=== PATIENT | male | born 1960 | race Caucasian/White ===

== ENCOUNTER 2019-07-20 12:06 | Inpatient (IN) | payer MEDICAID, OTHER ==
[~2019-07-20] VITALS: Ht 172.7 cm; Wt 90.9 kg
[2019-07-20 12:50] LABS: Basophils # (auto) 0.1 uL; Basophils % (auto) 1.7 % (0.0-2.0); Eosinophils # (auto) 0.2 uL; Eosinophils % (auto) 3.4 % (0.0-7.0); Hematocrit 37.6 % (41.0-53.0); Hemoglobin 12.6 g/dL (13.5-17.5); Lymphocytes # (auto) 2.5 uL; Lymphocytes % (auto) 35.1 % (10.0-50.0); Mean Corpuscular Hemoglobin 30.8 pg (28.0-32.0); Mean Corpuscular Hgb Conc. 33.5 g/dL (32.0-36.0); Mean Corpuscular Volume 91.9 fL (80.0-100.0); Monocytes # (auto) 0.4 uL; Monocytes % (auto) 5.1 % (0.0-12.0); Neutrophils # (auto) 3.9 uL; Neutrophils % (auto) 54.7 % (37.0-80.0); Platelet Count (auto) 204 10^3/uL (140-450); Red Blood Cells 4.09 10^6/uL (4.5-5.90); Red Cell Distribution Width 15.6 % (11.8-14.3); White Blood Cell 7.1 10^3/uL (4.4-10.8)
[2019-07-20 13:04] LABS: Albumin 2.8 g/dL (3.4-5.0); Anion Gap 6 (5-15); Blood Urea Nitrogen 21 mg/dL (7-18); Calcium 8.8 mg/dL (8.5-10.1); Carbon Dioxide 24 mmol/L (21-32); Chloride 114 mmol/L (98-107); Glucose 100 mg/dL (74-106); INR 0.94 (0.9-1.15); Partial Thromboplastin Time 25.9 sec (23.64-32.05); Sodium 144 mmol/L (136-145)
[2019-07-20 13:10] LABS: Alanine Aminotransferase 45 U/L (16-61); Alkaline Phosphatase 72 U/L (45-117); Aspartate Aminotransferase 30 U/L (15-37); BUN/Creatinine Ratio 22.1; Bilirubin, Total 0.4 mg/dL (0.2-1.0); GFR African American 105 mL/min; GFR Non-African American 87 mL/min; Total Protein 7.5 g/dL (6.4-8.2)
[2019-07-20] MEDS ORDERED: hydrALAZINE HCL 20 MG/ML VL IV PRN (17:15)
[2019-07-20] MEDS ORDERED: DEXTROSE (50%) 50ML SYRG IV PRN (17:15)
[2019-07-20] MEDS ORDERED: ACETAMINOPHEN 500 MG TAB PO PRN (17:15)
[2019-07-20] MEDS ORDERED: ONDANSETRON HCL 4 MG/2 ML VIAL IV PRN (17:15)
[2019-07-20] MEDS ORDERED: MORPHINE SULF INJ 2 MG/ML SYRINGE 1ML IV PRN (17:15)
[2019-07-20 17:24] LABS: CRP High Sensitivity 0.08 mg/dL (< 0.3)
--- NOTE | 2019-07-20 18:41 | NUR ---
PATIENT ADMITTED FROM ER VIA WHEELCHAIR: ORIENTED TO THE TELE/MS UNIT, ROOM 250A. A/OX 4 RESPIRATIONS EVEN AND UNLABORED. IV IN THE RIGHT HAND 20G LOCKED, FLUSHED WELL. PATIENT VS OBTAINED. ALL WNL. BED IN LOWEST LOCKED POSITION. CALL LIGHT WITHIN REACH, PATIENT VERBALIZED UNDERSTANDING. FALL PRECAUTIONS IN PLACE.
--- NOTE | 2019-07-20 18:44 | NUR ---
PERSONAL CANE AT BEDSIDE.
[2019-07-20 18:46] VITALS: BP 122/79
--- NOTE | 2019-07-20 19:00 | NUR ---
UPDATE ON ADMISSION: PATIENT HAS NICOTINE PATCH ON RIGHT UPPER ARM, SMOKES 1 PACK OVER 2 MONTHS. STATES ALL HIS PAPERWORK FROM [facility] IS IN THE PARKING LOT IN HIS TRUCK, ALONG WITH HIS RECENTLY DISCHARGED MEDS. PATIENT STATED HE HAS BEEN LIVING IN HIS TRUCK THE LAST THREE DAYS. INSTITUTIONAL NUTRITION CONSULTANT CONSULT PLACED. PATIENT REQUESTING FLU AND PNEUMONIA VACCINE. WILL ENDORSE CARE TO PATRICK VILLAGOMEZ.
[2019-07-20] MEDS ORDERED: INFLUENZA QUAD 2019-2020 0.5ml SYRG IM ONE (19:15)
[2019-07-20] MEDS ORDERED: PNEUMOCOCCAL VACC POLYS 25 MCG/0.5 ML VIAL IM ONE (19:15)
[2019-07-20] MEDS ORDERED: METF-370 PO (19:25)
[2019-07-20] MEDS ORDERED: GABA300C10 PO (19:25)
[2019-07-20] MEDS ORDERED: ATO40T PO (19:25)
[2019-07-20] MEDS ORDERED: MET50T PO (19:25)
--- NOTE | 2019-07-20 19:29 | NUR ---
CARE ENDORSED TO ALEKSANDER VILLAGOMEZ.
[2019-07-20] MEDS: InsuLIN REG 1unit/0.01ml Soln (100units/ml) SC SCH (21:37)
[2019-07-20] MEDS: ATORVASTATIN 20 MG TAB PO SCH (21:37)
[2019-07-20] MEDS: ACCU-CHEK COMFORT CURVE STRIP VI SCH (21:37)
[2019-07-20 22:00] VITALS: BP 118/62
[2019-07-20] MEDS: METOPROLOL TARTRATE 25 MG TAB PO SCH (22:00)
[2019-07-21 05:00] VITALS: BP 148/75
[2019-07-21 05:52] LABS: Basophils # (auto) 0.1 uL; Basophils % (auto) 1.8 % (0.0-2.0); Eosinophils # (auto) 0.2 uL; Eosinophils % (auto) 4.3 % (0.0-7.0); Hemoglobin 12.3 g/dL (13.5-17.5); Lymphocytes # (auto) 1.8 uL; Lymphocytes % (auto) 37.7 % (10.0-50.0); Mean Corpuscular Hemoglobin 30.7 pg (28.0-32.0); Mean Corpuscular Hgb Conc. 33.3 g/dL (32.0-36.0); Mean Corpuscular Volume 92.2 fL (80.0-100.0); Monocytes # (auto) 0.3 uL; Monocytes % (auto) 6.5 % (0.0-12.0); Neutrophils # (auto) 2.4 uL; Neutrophils % (auto) 49.7 % (37.0-80.0); Nucleated Red Blood Cells % 0.1 %; Platelet Count (auto) 180 10^3/uL (140-450); Red Blood Cells 4.01 10^6/uL (4.5-5.90); Red Cell Distribution Width 15.8 % (11.8-14.3); White Blood Cell 4.8 10^3/uL (4.4-10.8)
[2019-07-21 06:11] LABS: INR 0.96 (0.9-1.15); Partial Thromboplastin Time 26.1 sec (23.64-32.05)
[2019-07-21 06:19] LABS: BUN/Creatinine Ratio 23.1; Calcium 8.4 mg/dL (8.5-10.1)
[2019-07-21] MEDS: ACCU-CHEK COMFORT CURVE STRIP VI SCH ×4 (06:33→22:00)
[2019-07-21] MEDS: InsuLIN REG 1unit/0.01ml Soln (100units/ml) SC SCH ×4 (06:33→22:00)
[2019-07-21] MEDS: MORPHINE SULF INJ 2 MG/ML SYRINGE 1ML IV PRN ×2 (06:52→22:08)
--- NOTE | 2019-07-21 07:30 | NUR ---
Opening Shift Note Assumed care of patient, awake and alert. No S/S of distress/SOB or pain. Instructed on POC and to call for assist PRN, fall precautions in place per safety protocol. Will continue to monitor for changes Q1hr and PRN.
--- NOTE | 2019-07-21 07:30 | NUR ---
CARE ENDORSED TO AM SHIFT RN
[2019-07-21] MEDS ORDERED: ADENOSINE 75 MG in GIVE UN-DILUTED 0 ML IV STA (08:11)
[2019-07-21 08:32] VITALS: BP 144/76
[2019-07-21 08:58] VITALS: BP 117/72
--- NOTE | 2019-07-21 10:12 | NUR ---
. at bedside Dr. Orozco at bedside. aware of patient status. MD. Orozco spoke to Dr. Jimenez. Awaiting Echo at this time. No new orders at this time.
[2019-07-21] MEDS: FAMOTIDINE 20 MG TAB PO SCH (10:21)
[2019-07-21] MEDS: METOPROLOL TARTRATE 25 MG TAB PO SCH ×2 (10:21→22:00)
[2019-07-21] MEDS: ASPirin-EC 81 mg tab PO SCH (10:22)
[2019-07-21] MEDS: LISINOPRIL 10 MG TAB PO SCH (10:22)
[2019-07-21] MEDS: NITROGLYCERIN 0.4 MG SL TAB SL PRN ×2 (10:23→10:28)
--- NOTE | 2019-07-21 10:23 | NUR ---
Complaint of chest pain Patient complained of chest pain 9/10. Initiated Nitro therapy as ordered. First dose given at 1023 BP 142/76 HR 71. Patient reports pain level is down to 4/10. Second dose given 1028, BP 146/79 HR 79. Patient pain now at 2/10 and refusing third dose, states he is at a " comfortable pain level". No distress or SOB noted, resting comfortably in bed. Will continue to monitor PRN.
--- NOTE | 2019-07-21 10:39 | NUR ---
Pt. Denies pain Patient states chest pain has subsided. and pain level is 0/10, BP 109/78 HR 85. No signs of distress, sob, or discomfort noted. Will continue to monitor.
--- NOTE | 2019-07-21 12:05 | NUR ---
Cardio at bedside STAFF DEVELOPMENT EDUCATOR Appiah at bedside. Aware of patient status. Per STAFF DEVELOPMENT EDUCATOR, patient shows positive for Cardiolite and will be scheduled for an LHC. Per STAFF DEVELOPMENT EDUCATOR Appiah, continue nitro and analgesic therapy PRN. Will resume orders and continue to monitor.
[2019-07-21 13:00] VITALS: BP 132/74
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
[2019-07-21 16:52] VITALS: BP 141/70
--- NOTE | 2019-07-21 19:05 | NUR ---
Endorsed Care Endorsed care to welder 2nd shift DAHLIA Machuca. No distress noted or SOB at this time.
[2019-07-21] MEDS: ATORVASTATIN 20 MG TAB PO SCH (21:59)
[2019-07-21 23:26] VITALS: BP 130/56
[2019-07-22] MEDS: MORPHINE SULF INJ 2 MG/ML SYRINGE 1ML IV PRN ×3 (03:20→21:12)
[2019-07-22] MEDS: HYDROcodone-ACET 5/325MG TAB PO PRN (04:49)
[2019-07-22 06:18] LABS: Basophils # (auto) 0.1 uL; Basophils % (auto) 1.1 % (0.0-2.0); Eosinophils # (auto) 0.2 uL; Eosinophils % (auto) 2.9 % (0.0-7.0); Hematocrit 37.6 % (41.0-53.0); Hemoglobin 12.4 g/dL (13.5-17.5); Lymphocytes # (auto) 1.8 uL; Lymphocytes % (auto) 27.9 % (10.0-50.0); Mean Corpuscular Hemoglobin 30.4 pg (28.0-32.0); Mean Corpuscular Volume 92.1 fL (80.0-100.0); Monocytes # (auto) 0.3 uL; Monocytes % (auto) 5.2 % (0.0-12.0); Neutrophils # (auto) 4.1 uL; Neutrophils % (auto) 62.9 % (37.0-80.0); Platelet Count (auto) 171 10^3/uL (140-450); Red Blood Cells 4.08 10^6/uL (4.5-5.90); Red Cell Distribution Width 15.5 % (11.8-14.3); White Blood Cell 6.5 10^3/uL (4.4-10.8)
[2019-07-22 06:33] LABS: INR 0.95 (0.9-1.15)
[2019-07-22] MEDS: InsuLIN REG 1unit/0.01ml Soln (100units/ml) SC SCH ×4 (06:35→22:20)
[2019-07-22] MEDS: ACCU-CHEK COMFORT CURVE STRIP VI SCH ×4 (06:35→22:20)
[2019-07-22 06:37] LABS: Albumin 2.7 g/dL (3.4-5.0); Calcium 8.1 mg/dL (8.5-10.1); Magnesium 1.8 mg/dL (1.6-2.6); Potassium 4.1 mmol/L (3.5-5.1)
[2019-07-22 06:42] LABS: Bilirubin, Total 0.3 mg/dL (0.2-1.0); Total Protein 6.9 g/dL (6.4-8.2)
--- NOTE | 2019-07-22 07:07 | NUR ---
CARE ENDORSED TO AM SHIFT RN
--- NOTE | 2019-07-22 07:30 | NUR ---
Shift Opening note Assumed care of patient, awake and alert. No S/S of distress/SOB or pain at this time. Instructed on POC and to call for assist PRN, fall precautions in place per safety protocol, will continue to monitor for changes Q1hr and PRN.
[2019-07-22 09:00] VITALS: BP 122/73
[2019-07-22] MEDS: FAMOTIDINE 20 MG TAB PO SCH (09:59)
[2019-07-22] MEDS: LISINOPRIL 10 MG TAB PO SCH (09:59)
[2019-07-22] MEDS: ASPirin-EC 81 mg tab PO SCH (09:59)
[2019-07-22] MEDS: METOPROLOL TARTRATE 25 MG TAB PO SCH ×2 (10:00→22:21)
--- NOTE | 2019-07-22 10:20 | NUR ---
MD at bedside MD Dorseyod at bedside, aware of patient's status including c/o back pain. Patient denies CP at this time. Patient requesting nicotine patch stating that he will not go outside to smoke if he gets a patch, new orders received for patch and will medicate as ordered. Patient states he recently had MRI done in [place], MD Orozco requesting medical records to be obtained. Required medical records release form obtained and will fax as ordered. Awaiting LHC done today. Will cont to monitor.
[2019-07-22] MEDS: NICOTINE 14 MG/24HR TOPICAL PATCH TD SCH (11:01)
--- NOTE | 2019-07-22 11:45 | NUR ---
Patient taken to Extension Forester Patient was taken to label sewer for L heart cath procedure. VSS taken, no distress noted upon departure, two IV's present, flushed, and patent. Will cont to monitor on arrival back to unit.
[2019-07-22] MEDS ORDERED: ANGIOMAX 250 MG VIAL IV ONE (12:41)
[2019-07-22] MEDS ORDERED: SODIUM CHL 0.9% 0 ML ONE (12:41)
[2019-07-22] MEDS ORDERED: MIDAZOLAM HCL 1MG/1ML-2 ML VIAL ONE (12:41)
[2019-07-22] MEDS ORDERED: fentaNYL CITRATE 100 MCG/2 ML VL ONE (12:41)
[2019-07-22] MEDS ORDERED: IOHEXOL 350 MG/ML 100ML IJ ONE (12:45)
[2019-07-22] MEDS ORDERED: LIDOCAINE 2%HCL (LOCAL ANESTH.) INJ 20ML MDV ONE (12:46)
[2019-07-22 13:00] VITALS: BP 123/78
--- NOTE | 2019-07-22 14:35 | NUR ---
Patient return from laboratory cureman Patient back from lab engineer. Per Magaly VILLAGOMEZ, patient is able to sit up at 1545. VSS BP 145/74 HR 57 RR 18 O2 99%. No signs of distress, sob, or pain noted at this time. Will cont to monitor patient prn.
--- NOTE | 2019-07-22 14:36 | NUR ---
Dressing Dressing dry and in tact, no bleeding or hematoma noted. Patient instructed to lie flat in bed until 1545 and not bend right leg. Patient verbalized understanding. Will cont to monitor prn.
--- NOTE | 2019-07-22 16:37 | NUR ---
Cardio at bedside AUTOMATION APPLICATION ENGINEER Td at bedside, states Left heart cath is negative and patient is cleared from cardio for discharge from hospitalist.
[2019-07-22 17:00] VITALS: BP 136/70
--- NOTE | 2019-07-22 19:23 | NUR ---
Endorsed care to Gabino MATTHEWS
--- NOTE | 2019-07-22 20:15 | NUR ---
open note assumed care of pt. upon entering room pt awake, alert and oriented x4. pt on room air no distress noted or expressed. pt updated on plan of care, no questions at this time. pt has dressing to right groin, clean dry and intact. pt bed locked, low and 2x rails up. this nurse will round q1hr and prn. call light in reach.
[2019-07-22 22:00] VITALS: BP 138/73
[2019-07-22] MEDS: ATORVASTATIN 20 MG TAB PO SCH (22:20)
[2019-07-23] MEDS: MORPHINE SULF INJ 2 MG/ML SYRINGE 1ML IV PRN ×3 (03:22→20:21)
[2019-07-23 05:00] VITALS: BP 141/74
[2019-07-23] MEDS: ACCU-CHEK COMFORT CURVE STRIP VI SCH ×4 (06:49→22:00)
[2019-07-23] MEDS: InsuLIN REG 1unit/0.01ml Soln (100units/ml) SC SCH ×4 (06:49→21:59)
[2019-07-23 07:07] LABS: Calcium 8.5 mg/dL (8.5-10.1); Magnesium 1.8 mg/dL (1.6-2.6); Potassium 4.3 mmol/L (3.5-5.1)
[2019-07-23 07:17] LABS: BUN/Creatinine Ratio 15.6
--- NOTE | 2019-07-23 07:30 | NUR ---
Opening Shift Note Assumed care of patient, awake and alert. No S/S of distress/SOB or pain. Instructed on POC and to call for assist PRN, will continue to monitor for changes Q1hr and PRN.
[2019-07-23] MEDS: HYDROcodone-ACET 5/325MG TAB PO PRN ×2 (08:15→23:22)
[2019-07-23] MEDS: NICOTINE 14 MG/24HR TOPICAL PATCH TD SCH (10:06)
[2019-07-23] MEDS: FAMOTIDINE 20 MG TAB PO SCH (10:07)
[2019-07-23] MEDS: LISINOPRIL 10 MG TAB PO SCH (10:07)
[2019-07-23] MEDS: METOPROLOL TARTRATE 25 MG TAB PO SCH ×2 (10:07→21:42)
[2019-07-23] MEDS: ASPirin-EC 81 mg tab PO SCH (10:07)
--- NOTE | 2019-07-23 10:20 | NUR ---
Dr. Edna Orozco in to see patient as primary MD.
[2019-07-23 13:00] VITALS: BP 159/77
[2019-07-23] MEDS ORDERED: ERTU15TA PO (15:34)
[2019-07-23] MEDS ORDERED: METF-370 PO (15:34)
[2019-07-23] MEDS ORDERED: GABA300C10 PO (15:34)
[2019-07-23] MEDS ORDERED: BENA40TA7 PO (15:34)
[2019-07-23] MEDS ORDERED: ASPI-404 PO (15:34)
[2019-07-23] MEDS ORDERED: INSU1INJ19 SC (15:34)
[2019-07-23] MEDS ORDERED: HCTZ25T PO (15:34)
[2019-07-23] MEDS ORDERED: BACL10TA PO (15:34)
[2019-07-23] MEDS ORDERED: NIC21P TOP (15:34)
[2019-07-23] MEDS ORDERED: CLOP75TA28 PO (15:34)
[2019-07-23 17:00] VITALS: BP 137/67
[2019-07-23] MEDS: ATORVASTATIN 20 MG TAB PO SCH (21:41)
[2019-07-23 22:00] VITALS: BP 137/72
[2019-07-24] MEDS: MORPHINE SULF INJ 2 MG/ML SYRINGE 1ML IV PRN ×3 (03:43→14:17)
[2019-07-24 05:00] VITALS: BP 155/78
[2019-07-24] MEDS: ACCU-CHEK COMFORT CURVE STRIP VI SCH ×2 (06:53→12:50)
[2019-07-24] MEDS: HYDROcodone-ACET 5/325MG TAB PO PRN (06:53)
[2019-07-24] MEDS: InsuLIN REG 1unit/0.01ml Soln (100units/ml) SC SCH ×2 (06:54→11:30)
[2019-07-24 08:01] LABS: Albumin 2.8 g/dL (3.4-5.0); Calcium 8.3 mg/dL (8.5-10.1); Potassium 4.2 mmol/L (3.5-5.1)
[2019-07-24 08:06] LABS: BUN/Creatinine Ratio 15.9; Bilirubin, Total 0.6 mg/dL (0.2-1.0)
[2019-07-24 09:00] VITALS: BP 142/75
[2019-07-24] MEDS: METOPROLOL TARTRATE 25 MG TAB PO SCH (09:55)
[2019-07-24] MEDS: FAMOTIDINE 20 MG TAB PO SCH (09:55)
[2019-07-24] MEDS: NICOTINE 14 MG/24HR TOPICAL PATCH TD SCH (09:56)
[2019-07-24] MEDS: LISINOPRIL 10 MG TAB PO SCH (09:56)
[2019-07-24] MEDS: ASPirin-EC 81 mg tab PO SCH (09:57)
--- NOTE | 2019-07-24 11:27 | NUR ---
Nutrition Assessment Notes please see attached link for complete assessment Est. Needs based on ABW (80 kg): 5386-9973 kcal (23-25 kcal/kgBW), 80-88 gms pro (1.0-1.1 gms/kgBW). Will continue to monitor pertinent labs and reassess nutrient need prn Addendum: 07/24/19 at [address] Amended: Links added.
[2019-07-24 13:00] VITALS: BP 145/67
[2019-07-24 13:11] VITALS: BP 142/75
--- NOTE | 2019-07-24 14:00 | NUR ---
PT AWAITING CALL BACK FROM KAYLEEN ([facility] [employer]) FOR ACCEPTANCE. PER EDWIN; WILL SPEAK TO SALES OPERATIONS COORDINATOR AND CALL BACK.
--- NOTE | 2019-07-24 14:25 | NUR ---
PAGED ED COLE REGARDING DISCHARGE PLANNING.
--- NOTE | 2019-07-24 16:02 | NUR ---
SW SPOKE TO PT. REGARDING DISCHARGE PLANNING. PT REPORTS THAT HE WILL BE GOING TO SISTER'S HOUSE. DISCHARGE INSTRUCTIONS PROVIDED TO PT. PT VERBALIZED UNDERSTANDING FOR PRESCRIPTION ORDERS AND FOLLOW UP APPOINTMENT WITH PRIMARY CARE PROVIDER. EDUCATIONAL MATERIAL PROVIDED, ALL QUESTIONS AND CONCERNS ADDRESSED. IV CATHETER TO LFA AND RFA#20 DC'D CATHETER INTACT, NO PHLEBITIS. TELE BOX REMOVED AND RETURNED TO TELE DEPT. PT DECIDED TO AMBULATE OUT OF UNIT. NO DISTRESS AT MOMENT.
--- NOTE | 2019-07-24 16:20 | NUR ---
Consult for Personnel Consultant to see pt. Pt is being discharged this PM. Pt states he did call several board and cares. However the pt states he has no money to pay for a place to stay. The pt states he has a sister in [place] and is going to call her to see if he can stay there for a couple of days. His plans are to drive down the hill and find a alf. The pt has clothes that are appropriate for the weather and access to food. Pt has a vehicle that works. Pt has health insurance and access to health care. Pt was given his prescriptions and has access to purchasing them. Pt was given the option of going to a tessa based facility. However since he does not have a substance abuse issue they will not accept him.
== END 2019-07-24 16:10 | disposition home or self-care (01) | DRG 192 ==
LOC: ER 12:13 → TELE 12:14 → TELE-EAST 17:58
PROVIDERS: ADMIT Nurse Practitioner Acute Care; ATTEND Internal Medicine
PROC: 4A023N7 Measurement of Cardiac Sampling and Pressure, Left Heart, Percutaneous Approach (ICD-10-PCS; principal; 2019-07-22)
PROC: B2111ZZ Fluoroscopy of Multiple Coronary Arteries using Low Osmolar Contrast (ICD-10-PCS; 2019-07-22)
PROC: B2151ZZ Fluoroscopy of Left Heart using Low Osmolar Contrast (ICD-10-PCS; 2019-07-22)
DX: R07.89 Other chest pain (principal); E11.65 Type 2 diabetes mellitus with hyperglycemia; E11.42 Type 2 diabetes mellitus with diabetic polyneuropathy; I11.0 Hypertensive heart disease with heart failure; I50.30 Unspecified diastolic (congestive) heart failure; D64.9 Anemia, unspecified; E44.1 Mild protein-calorie malnutrition; J44.9 Chronic obstructive pulmonary disease, unspecified; I08.0 Rheumatic disorders of both mitral and aortic valves; F17.210 Nicotine dependence, cigarettes, uncomplicated; E66.9 Obesity, unspecified; E78.00 Pure hypercholesterolemia, unspecified; E78.5 Hyperlipidemia, unspecified; Z86.73 Personal history of transient ischemic attack (TIA), and cerebral infarction without residual deficits; Z68.30 Body mass index [BMI] 30.0-30.9, adult; Z79.82 Long term (current) use of aspirin; Z79.899 Other long term (current) drug therapy; Z91.19 Patient's noncompliance with other medical treatment and regimen; Z82.49 Family history of ischemic heart disease and other diseases of the circulatory system; Z79.84 Long term (current) use of oral hypoglycemic drugs
CPT/HCPCS: 36415; 71045; 78452; 80048; 80053; 80061; 82962; 83036; 83735; 84443; 84484; 85025; 85610; 85730; 86141; 87081; 93005; 93017; 93306; 93458; 99152; G0378; J0153; J1815; J2250